=== PATIENT | male | born 1955 | race African-American/Black ===

== ENCOUNTER 2017-12-31 10:02 | Outpatient (CLI) | payer OTHER | END 2017-12-31 10:03 | disposition home or self-care (01) | LOC: BICRAD 10:02 | PROVIDERS: ATTEND Internal Medicine | DX: Z02.71 Encounter for disability determination (principal); M48.07 Spinal stenosis, lumbosacral region; M46.96 Unspecified inflammatory spondylopathy, lumbar region | CPT/HCPCS: 72100 ==

== ENCOUNTER 2018-05-23 10:59 | Outpatient (CLI) | payer OTHER ==
--- NOTE | 2018-05-23 13:21 | RAD ---
FOUR VIEWS LEFT KNEE: HISTORY: Left knee pain. FINDINGS: AP, lateral, and both oblique views left knee are obtained on 05/23/2018. Comparison is made to the p revious exam from 06/03/2015. Four views left knee demonstrate joint space narrowing in the lateral compartment of the left knee. There are some osteophytes still seen in the medial compartment of the left knee. Findings compatibl e with moderate left knee osteoarthritic changes. No acute fractures or bony lesions seen. IMPRESSION: Moderate left knee osteoarthritis. POS: [facility]
--- NOTE | 2018-05-23 13:26 | RAD ---
FOUR VIEWS RIGHT KNEE: COMPARISON: None. HISTORY: Right knee pain. FINDINGS: Four views of the right knee show moderate tricompartmental joint space narrowing and osteophyte form ation consistent with osteoarthritis. No knee effusion is seen. IMPRESSION: Moderate right knee osteoarthritis without acute osseous abnormality. POS: [facility]
== END 2018-05-23 11:00 | disposition home or self-care (01) ==
LOC: RAD-FRANK 10:59
PROVIDERS: ATTEND Nurse Practitioner Family
DX: M25.561 Pain in right knee (principal); M25.562 Pain in left knee; M17.0 Bilateral primary osteoarthritis of knee

== ENCOUNTER 2018-09-25 10:57 | Emergency (ER) | payer OTHER ==
[2018-09-25] MEDS ORDERED: HYDROcodone/Acetaminophen 10/325 mg Tablet ONE (12:33)
[2018-09-25] MEDS ORDERED: Dexamethasone 10 MG/ML VIAL ONE (12:33)
== END 2018-09-25 13:35 | disposition home or self-care (01) ==
LOC: ERS 10:57
DX: M17.0 Bilateral primary osteoarthritis of knee (principal); I10 Essential (primary) hypertension; Z79.899 Other long term (current) drug therapy
CPT/HCPCS: 96372; J1100

== ENCOUNTER 2022-09-26 08:59 | Outpatient (CLI) | payer OTHER | END 2022-09-26 09:00 | disposition home or self-care (01) | LOC: RAD-FRANK 08:59 | PROVIDERS: ATTEND Nurse Practitioner Family | DX: M25.461 Effusion, right knee (principal); M17.11 Unilateral primary osteoarthritis, right knee ==

== ENCOUNTER 2023-07-22 21:12 | Observation (INO) | payer MEDICAID, MEDICARE ==
[2023-07-22 21:50] LABS: #Basophils 0.1 thou/uL (0.0-0.2); #Eosinphils 0.3 thou/uL (0.0-0.7); #Monocytes 0.8 thou/uL (0.11-0.59); #Neutrophils 7.9 thou/uL (1.40-6.50); %Basophils 0.5 % (0.0-1.0); %Eosinophils 2.6 % (0.0-10.0); %Lymphocytes 12.8 % (21.0-51.0); %Neutrophils 75.7 % (42.0-75.0); Hematocrit 44.7 % (42.0-52.0); Mean Corpuscular HGB CONC 33.6 g/dL (32.0-36.0); Mean Corpuscular Hemoglobin 31.9 pg (27.0-31.0); Mean Corpuscular Volume 95.1 fl (78.0-98.0); Mean Platelet Volume 9.6 fL (7.4-10.4); Platelet Count 318 10x3/uL (130-400); RBC Distribution Width 14.8 % (11.5-14.5); White Blood Cell (WBC) Count 10.4 10x3/uL (4.8-10.8)
[2023-07-22 22:06] LABS: ALT (SGPT) 13 U/L (8-55); AST (SGOT) 24 U/L (5-34); Albumin 3.8 g/dL (3.4-4.8); Alkaline Phosphatase 112 U/L (40-110); Anion Gap 15 mmol/L (10-20); BUN (Urea Nitrogen) 11 mg/dL (8.4-25.7); Bilirubin, Total 0.8 mg/dL (0.2-1.2); Calc. Creatinine Clearance 0 mL/min (70-130); Calcium 8.6 mg/dL (7.8-10.44); Carbon Dioxide 19 mmol/L (23-31); Chloride 104 mmol/L (98-107); Estimated GFR 96; Globulin 3.7 g/dL (2.4-3.5); Glucose 135 mg/dL (80-115); Potassium 3.9 mmol/L (3.5-5.1); Protein, Total 7.5 g/dL (5.8-8.1); Sodium 134 mmol/L (136-145)
[2023-07-22 22:10] LABS: Troponin I 0.054 ng/mL (< 0.028)
[2023-07-22] MEDS ORDERED: methylPREDNISolone Sod Succ/PF 125 MG/2 ML VIAL ONE (23:00)
[2023-07-22] MEDS ORDERED: Aspirin Chewable 81 MG TAB ONE (23:00)
[2023-07-23] MEDS ORDERED: Albuterol 2.5 MG (0.5 mL) NEB ONE (00:18)
[2023-07-23] MEDS ORDERED: Ipratropium/Albuterol 3 ML NEB ONE ×2 (00:19→06:08)
[2023-07-23] MEDS ORDERED: Senokot S 8.6-50 MG TAB PO PRN (00:35)
[2023-07-23] MEDS ORDERED: HYDROcodone/Acetaminophen 5/325 mg Tablet PO PRN ×2 (00:35)
[2023-07-23] MEDS ORDERED: Acetaminophen 325 MG TAB PO PRN (00:35)
[2023-07-23] MEDS: Ipratropium/Albuterol 3 ML NEB NEB SCH ×4 (02:18→19:00)
[2023-07-23 02:28] VITALS: BMI 32.6
[2023-07-23 03:37] LABS: #Monocytes 0.2 thou/uL (0.11-0.59); %Basophils 0.3 % (0.0-1.0); %Eosinophils 0.1 % (0.0-10.0); %Lymphocytes 3.3 % (21.0-51.0); %Monocytes 1.5 % (0.0-10.0); %Neutrophils 94.4 % (42.0-75.0); Hematocrit 45.5 % (42.0-52.0); Hemoglobin 14.9 g/dL (14.0-18.0); Mean Corpuscular HGB CONC 32.7 g/dL (32.0-36.0); Mean Corpuscular Hemoglobin 31.2 pg (27.0-31.0); Mean Corpuscular Volume 95.4 fl (78.0-98.0); Mean Platelet Volume 9.8 fL (7.4-10.4); Platelet Count 294 10x3/uL (130-400); RBC Distribution Width 14.8 % (11.5-14.5); Red Blood Cell (RBC) Count 4.77 mill/uL (4.70-6.10); White Blood Cell (WBC) Count 10.6 10x3/uL (4.8-10.8)
[2023-07-23 03:55] LABS: Phosphorus 2.4 mg/dL (2.3-4.7)
[2023-07-23 03:57] LABS: Troponin I 0.035 ng/mL (< 0.028)
[2023-07-23 04:00] LABS: ALT (SGPT) 14 U/L (8-55); AST (SGOT) 23 U/L (5-34); Albumin 3.9 g/dL (3.4-4.8); Alkaline Phosphatase 112 U/L (40-110); Anion Gap 13 mmol/L (10-20); BUN (Urea Nitrogen) 10 mg/dL (8.4-25.7); Bilirubin, Total 1.1 mg/dL (0.2-1.2); Calc. Creatinine Clearance 128 mL/min (70-130); Calcium 8.6 mg/dL (7.8-10.44); Carbon Dioxide 20 mmol/L (23-31); Chloride 104 mmol/L (98-107); Estimated GFR 98; Globulin 3.9 g/dL (2.4-3.5); Glucose 172 mg/dL (80-115); Magnesium 1.8 mg/dL (1.6-2.6); Protein, Total 7.8 g/dL (5.8-8.1); Sodium 133 mmol/L (136-145)
[2023-07-23 05:03] LABS: SARS-CoV-2 NAA Rapid Test Not Detected (NotDetected)
[2023-07-23] MEDS ORDERED: Furosemide 20 MG TAB PO SCH (08:00)
[2023-07-23] MEDS ORDERED: Furosemide 20 MG (2 mL) VIAL SLOW IVP SCH (09:00)
[2023-07-23] MEDS ORDERED: Aspirin 325 mg Enteric Coated Tablet PO SCH (09:00)
[2023-07-23] MEDS ORDERED: Furosemide 40 MG TAB ONE (09:30)
[2023-07-23] MEDS ORDERED: Aspirin 325 MG TAB ONE (09:30)
[2023-07-23] MEDS ORDERED: Famotidine 20 MG TAB ONE (09:31)
[2023-07-23] MEDS ORDERED: Enoxaparin 40 MG (0.4 mL) SYRINGE ONE (09:31)
[2023-07-23] MEDS ORDERED: Lisinopril 10 MG TAB ONE (09:32)
[2023-07-23] MEDS: Enoxaparin 40 MG (0.4 mL) SYRINGE SC SCH (09:43)
[2023-07-23] MEDS: Famotidine 20 MG TAB PO SCH ×2 (09:44→21:29)
[2023-07-23] MEDS: Lisinopril 5 MG TAB PO SCH ×2 (09:44→21:29)
[2023-07-23] MEDS: Nitroglycerin 2% Ointment 1 INCH/1 GM Packet TOP SCH ×2 (14:06→21:29)
[2023-07-23] MEDS: Guaifenesin DM 100-10/5 ML UDCUP PO PRN ×2 (14:06→21:29)
[2023-07-23] MEDS ORDERED: Atorvastatin Calcium 40 MG TAB PO SCH (21:00)
[2023-07-24] MEDS: Ipratropium/Albuterol 3 ML NEB NEB SCH ×2 (01:47→06:27)
[2023-07-24] MEDS: Nitroglycerin 2% Ointment 1 INCH/1 GM Packet TOP SCH (05:41)
[2023-07-24] MEDS: Famotidine 20 MG TAB PO SCH (08:19)
[2023-07-24] MEDS: Enoxaparin 40 MG (0.4 mL) SYRINGE SC SCH (08:19)
[2023-07-24] MEDS: Lisinopril 5 MG TAB PO SCH (08:20)
[2023-07-24] MEDS ORDERED: Aspirin 81 mg Enteric Coated Tablet PO SCH (09:00)
[2023-07-24] MEDS ORDERED: FLU VACC QS2023(65UP)/MF59C/PF 60 MCG/0.5 ML SYRINGE IM ONE (09:00)
[2023-07-24] MEDS: Guaifenesin DM 100-10/5 ML UDCUP PO PRN (11:53)
[2023-07-24 11:56] VITALS: BP 148/92; TEMP 98
== END 2023-07-24 13:00 | disposition home or self-care (01) ==
LOC: ERS 21:12 → ERHOLD 07-23 00:32 → 2SW 07-23 12:56
PROVIDERS: ADMIT Student in an Organized Health Care Education/Training Program; ATTEND Physician Assistant
DX: R06.02 Shortness of breath (principal); I10 Essential (primary) hypertension; M17.10 Unilateral primary osteoarthritis, unspecified knee; R79.89 Other specified abnormal findings of blood chemistry; I11.0 Hypertensive heart disease with heart failure; I50.9 Heart failure, unspecified; Z79.82 Long term (current) use of aspirin; Z79.899 Other long term (current) drug therapy
CPT/HCPCS: 0240U; 71045; 80053 ×2; 83605; 83735; 83880; 84100; 84484 ×3; 85025 ×2; 87040; 90694; 93306; 94640 ×4; 96361; 96372 ×2; 96374; 99285; G0008; G0378 ×3; 36415; 90471; J1650; J2930; J7611; J7620

== ENCOUNTER 2023-10-06 09:50 | Inpatient (IN) | payer MEDICARE, MEDICAID ==
[2023-10-06] MEDS ORDERED: Furosemide 40 MG (4 mL) VIAL ONE (10:35)
[2023-10-06] MEDS ORDERED: Ipratropium/Albuterol 3 ML NEB ONE (10:35)
[2023-10-06 11:35] LABS: #Basophils 0.1 thou/uL (0.0-0.2); #Eosinphils 0.6 thou/uL (0.0-0.7); #Monocytes 0.7 thou/uL (0.11-0.59); #Neutrophils 4.6 thou/uL (1.40-6.50); %Basophils 0.7 % (0.0-1.0); %Eosinophils 8.4 % (0.0-10.0); %Lymphocytes 17.4 % (21.0-51.0); %Monocytes 9.9 % (0.0-10.0); %Neutrophils 63.2 % (42.0-75.0); Hematocrit 40.9 % (42.0-52.0); Hemoglobin 13.6 g/dL (14.0-18.0); Mean Corpuscular HGB CONC 33.3 g/dL (32.0-36.0); Mean Corpuscular Hemoglobin 30.8 pg (27.0-31.0); Mean Corpuscular Volume 92.7 fl (78.0-98.0); Mean Platelet Volume 11.6 fL (7.4-10.4); Platelet Count 197 10x3/uL (130-400); RBC Distribution Width 14.8 % (11.5-14.5); Red Blood Cell (RBC) Count 4.41 mill/uL (4.70-6.10); White Blood Cell (WBC) Count 7.3 10x3/uL (4.8-10.8)
[2023-10-06 11:45] LABS: ALT (SGPT) 14 U/L (8-55); AST (SGOT) 32 U/L (5-34); Albumin 3.2 g/dL (3.4-4.8); Alkaline Phosphatase 139 U/L (40-110); Anion Gap 13 mmol/L (10-20); BUN (Urea Nitrogen) 10 mg/dL (8.4-25.7); Bilirubin, Total 1.5 mg/dL (0.2-1.2); Calc. Creatinine Clearance 0 mL/min (70-130); Carbon Dioxide 24 mmol/L (23-31); Chloride 103 mmol/L (98-107); Estimated GFR 96; Globulin 4.2 g/dL (2.4-3.5); Glucose 146 mg/dL (80-115); Potassium 3.7 mmol/L (3.5-5.1); Protein, Total 7.4 g/dL (5.8-8.1); Sodium 136 mmol/L (136-145)
[2023-10-06] MEDS ORDERED: Sodium Chloride 0.9% 100 ML ONE (11:46)
[2023-10-06] MEDS ORDERED: cefTRIAXone (ROCEPHIN) 1 GM VIAL ONE (11:46)
[2023-10-06 11:47] LABS: Troponin I 0.046 ng/mL (< 0.028)
[2023-10-06 12:39] LABS: Bacteria/HPF None Seen HPF (None Seen); Bilirubin Negative (Negative); Blood, Urine Negative (Negative); CAUTI Indications for Culture Alt mental st,lethar; Clarity Clear (Clear); Glucose, Urine (Dipstick) Normal (Negative); Ketone, Urine Negative (Negative); Leukocyte Negative Leu/uL (Negative); Nitrite Negative (Negative); Protein, Urine (Dipstick) Negative (Neg-Trace); RBC/HPF 0-3 HPF (0-3); Squamous Epithelial 0-3 HPF (0-3); WBC/HPF 0-3 HPF (0-3); pH, Urine 6.5 (5.0-9.0)
[2023-10-06 12:41] LABS: Urine Culture Reflex No No
[2023-10-06 13:13] LABS: Actual Bicarbonate (HCO3v) 28.5 mEq/L (22-28); Analyzer IN Cardio ER; Base Excess 2.4 mEq/L (-2.0 to +3.0); Calcium, Ionized (venous) 1.14 mmol/L (1.16-1.32); Chloride (VBG) 100 mmol/L (98-106); Hematocrit-VBG 44 % (42.0-52.0); Hemoglobin (Hb) 14.8 g/dL (12.6-17.4); Potassium (VBG) 3.78 mmol/L (3.70-5.30); Sodium 140 mmol/L (133-146); pH (venous) 7.375 (7.32-7.43)
[2023-10-06] MEDS ORDERED: Azithromycin 500 MG VIAL ONE (13:14)
[2023-10-06] MEDS ORDERED: Acetaminophen 325 MG TAB PO PRN (14:09)
[2023-10-06] MEDS ORDERED: Acetaminophen/Codeine 30-300mg Tablet PO PRN (14:31)
[2023-10-06] MEDS: Lisinopril 5 MG TAB PO SCH ×2 (15:20→20:25)
[2023-10-06] MEDS: Nicotine 14 MG PATCH TD SCH (17:00)
[2023-10-06] MEDS: Enoxaparin 40 MG (0.4 mL) SYRINGE SC SCH (17:00)
[2023-10-06] MEDS: Empagliflozin 10 MG TAB PO SCH (17:01)
[2023-10-06] MEDS: Spironolactone 25 MG TAB PO SCH (17:01)
[2023-10-06] MEDS: Potassium Chloride 20 MEQ TAB PO SCH (17:01)
[2023-10-06 17:43] LABS: Lactic Acid 3.8 mmol/L (0.5-2.2)
[2023-10-06 17:48] LABS: Magnesium 1.7 mg/dL (1.6-2.6)
[2023-10-06 17:53] LABS: Troponin I 0.052 ng/mL (< 0.028)
[2023-10-06 19:05] LABS: Amphetamine Not Detected (NotDetected); Barbiturates Screen Not Detected (NotDetected); Benzodiazepine Screen Not Detected (NotDetected); Cocaine Metabolite Screen Detected (NotDetected); Methadone Not Detected (NotDetected); Methamphetamine Not Detected (NotDetected); Opiate Screen Not Detected (NotDetected); Oxycodone Screen Not Detected (NotDetected); Phencyclidine (PCP) Not Detected (NotDetected); THC/Cannabinoid Screen Not Detected (NotDetected); Tricyclic Screen Not Detected (NotDetected)
[2023-10-06 19:20] LABS: Troponin I 0.035 ng/mL (< 0.028)
[2023-10-06] MEDS: Ipratropium/Albuterol 3 ML NEB NEB PRN (21:03)
[2023-10-07 05:20] LABS: #Basophils 0.1 thou/uL (0.0-0.2); #Eosinphils 0.7 thou/uL (0.0-0.7); #Monocytes 0.8 thou/uL (0.11-0.59); #Neutrophils 4.2 thou/uL (1.40-6.50); %Basophils 0.9 % (0.0-1.0); %Eosinophils 9.8 % (0.0-10.0); %Lymphocytes 22.4 % (21.0-51.0); %Monocytes 10.7 % (0.0-10.0); %Neutrophils 55.9 % (42.0-75.0); Hematocrit 41.8 % (42.0-52.0); Hemoglobin 13.7 g/dL (14.0-18.0); Mean Corpuscular HGB CONC 32.8 g/dL (32.0-36.0); Mean Corpuscular Hemoglobin 31.3 pg (27.0-31.0); Mean Corpuscular Volume 95.4 fl (78.0-98.0); Mean Platelet Volume 10.8 fL (7.4-10.4); Platelet Count 225 10x3/uL (130-400); RBC Distribution Width 14.9 % (11.5-14.5); Red Blood Cell (RBC) Count 4.38 mill/uL (4.70-6.10); White Blood Cell (WBC) Count 7.5 10x3/uL (4.8-10.8)
[2023-10-07] MEDS: Furosemide 40 MG (4 mL) VIAL SLOW IVP SCH (05:29)
[2023-10-07 05:47] LABS: Anion Gap 15 mmol/L (10-20); BUN (Urea Nitrogen) 10 mg/dL (8.4-25.7); Calc. Creatinine Clearance 124 mL/min (70-130); Calcium 9.3 mg/dL (7.8-10.44); Carbon Dioxide 23 mmol/L (23-31); Cardiac Risk 3.2 (Less than 4.5); Chloride 104 mmol/L (98-107); Cholesterol 118 mg/dl (< 200 Desired); Estimated GFR 95; Glucose 101 mg/dL (80-115); HDL Cholesterol 37 mg/dL (>60 Neg Risk); LDL Cholesterol, Calculated 70 mg/dL; Potassium 3.7 mmol/L (3.5-5.1); Sodium 138 mmol/L (136-145); Triglycerides 57 mg/dL (Less than 150)
[2023-10-07] MEDS: Empagliflozin 10 MG TAB PO SCH (08:57)
[2023-10-07] MEDS: Spironolactone 25 MG TAB PO SCH (08:59)
[2023-10-07 10:08] LABS: Lactic Acid 1.8 mmol/L (0.5-2.2)
[2023-10-07] MEDS: cefTRIAXone\\ROCEPHIN 1 GM in Sodium Chloride 0.9% 100 ML IVPB SCH (11:52)
[2023-10-07] MEDS: Azithromycin 500 MG in Sodium Chloride 0.9% 250 ML 250 ML IVPB SCH (12:43)
[2023-10-07] MEDS: Magnesium 2 GM/50 ML(in water) 2 GM in Premix 1 BAG IVPB SCH (12:44)
[2023-10-08 06:21] LABS: #Eosinphils 0.5 thou/uL (0.0-0.7); #Monocytes 0.8 thou/uL (0.11-0.59); #Neutrophils 4.2 thou/uL (1.40-6.50); %Basophils 0.6 % (0.0-1.0); %Eosinophils 7.1 % (0.0-10.0); %Lymphocytes 22.1 % (21.0-51.0); %Monocytes 10.8 % (0.0-10.0); %Neutrophils 59.3 % (42.0-75.0); Hemoglobin 14.6 g/dL (14.0-18.0); Mean Corpuscular HGB CONC 32.4 g/dL (32.0-36.0); Mean Corpuscular Hemoglobin 30.9 pg (27.0-31.0); Mean Corpuscular Volume 95.3 fl (78.0-98.0); Platelet Count 214 10x3/uL (130-400); RBC Distribution Width 14.7 % (11.5-14.5); Red Blood Cell (RBC) Count 4.72 mill/uL (4.70-6.10)
[2023-10-08 06:57] LABS: Anion Gap 16 mmol/L (10-20); BUN (Urea Nitrogen) 14 mg/dL (8.4-25.7); Calc. Creatinine Clearance 112 mL/min (70-130); Calcium 9.3 mg/dL (7.8-10.44); Carbon Dioxide 23 mmol/L (23-31); Chloride 103 mmol/L (98-107); Estimated GFR 86; Glucose 93 mg/dL (80-115); Potassium 3.7 mmol/L (3.5-5.1); Sodium 138 mmol/L (136-145)
[2023-10-08] MEDS: Potassium Chloride 20 MEQ TAB PO SCH (15:55)
[2023-10-08 23:36] LABS: Magnesium 1.9 mg/dL (1.6-2.6)
[2023-10-09 04:28] LABS: #Basophils 0.1 thou/uL (0.0-0.2); #Eosinphils 0.5 thou/uL (0.0-0.7); #Monocytes 0.8 thou/uL (0.11-0.59); #Neutrophils 4.8 thou/uL (1.40-6.50); %Basophils 0.6 % (0.0-1.0); %Eosinophils 6.1 % (0.0-10.0); %Lymphocytes 21.4 % (21.0-51.0); %Monocytes 10.5 % (0.0-10.0); %Neutrophils 61.1 % (42.0-75.0); Hematocrit 42.5 % (42.0-52.0); Hemoglobin 13.6 g/dL (14.0-18.0); Mean Corpuscular Hemoglobin 30.3 pg (27.0-31.0); Mean Corpuscular Volume 94.7 fl (78.0-98.0); Mean Platelet Volume 10.6 fL (7.4-10.4); Platelet Count 237 10x3/uL (130-400); RBC Distribution Width 14.8 % (11.5-14.5); Red Blood Cell (RBC) Count 4.49 mill/uL (4.70-6.10); White Blood Cell (WBC) Count 7.9 10x3/uL (4.8-10.8)
[2023-10-09 05:04] LABS: Anion Gap 15 mmol/L (10-20); BUN (Urea Nitrogen) 16 mg/dL (8.4-25.7); Calc. Creatinine Clearance 105 mL/min (70-130); Calcium 8.9 mg/dL (7.8-10.44); Carbon Dioxide 23 mmol/L (23-31); Chloride 104 mmol/L (98-107); Estimated GFR 79; Glucose 108 mg/dL (80-115); Potassium 3.7 mmol/L (3.5-5.1); Sodium 138 mmol/L (136-145)
[2023-10-09] MEDS: Spironolactone 25 MG TAB PO SCH (08:08)
[2023-10-09] MEDS: Potassium Chloride 20 MEQ TAB PO SCH (08:25)
[2023-10-10 05:40] LABS: Anion Gap 16 mmol/L (10-20); BUN (Urea Nitrogen) 15 mg/dL (8.4-25.7); Calc. Creatinine Clearance 95 mL/min (70-130); Calcium 9.2 mg/dL (7.8-10.44); Carbon Dioxide 23 mmol/L (23-31); Chloride 103 mmol/L (98-107); Estimated GFR 78; Glucose 105 mg/dL (80-115); Magnesium 2.2 mg/dL (1.6-2.6); Potassium 4.4 mmol/L (3.5-5.1); Sodium 138 mmol/L (136-145)
[2023-10-10] MEDS ORDERED: Communication Order-Pharmacy FS SCH (09:15)
[2023-10-10] MEDS: Aspirin 325 mg Enteric Coated Tablet PO SCH (10:29)
[2023-10-11] MEDS: Sodium Chloride 0.9% 1,000 ML IV SCH (05:56)
[2023-10-11] MEDS: Aspirin 81 mg Enteric Coated Tablet PO SCH (05:59)
[2023-10-11] MEDS ORDERED: Heparin 10,000 UNITS/ 10 ML VIAL ONE (06:28)
[2023-10-11] MEDS ORDERED: Lidocaine 1% (PF) 30 ML VIAL ONE (06:28)
[2023-10-11] MEDS ORDERED: fentaNYL 50 mcg/mL 1 mL Vial ONE (07:28)
[2023-10-11] MEDS ORDERED: Nitroglycerin 0.4 MG TAB (25 Tab Bottle) SL PRN (08:00)
[2023-10-11] MEDS ORDERED: Sodium Chloride 0.9% 200 ML IV PRN (08:00)
[2023-10-11] MEDS ORDERED: Acetaminophen/Codeine 30-300mg Tablet PO PRN (08:00)
[2023-10-11 09:50] LABS: Anion Gap 14 mmol/L (10-20); BUN (Urea Nitrogen) 18 mg/dL (8.4-25.7); Calc. Creatinine Clearance 88 mL/min (70-130); Calcium 9.8 mg/dL (7.8-10.44); Carbon Dioxide 25 mmol/L (23-31); Chloride 102 mmol/L (98-107); Estimated GFR 77; Glucose 97 mg/dL (80-115); Potassium 4.2 mmol/L (3.5-5.1); Sodium 137 mmol/L (136-145)
[2023-10-12 08:19] VITALS: BP 130/71; TEMP 98.8
[2023-10-12 08:22] VITALS: BMI 30.6
[2023-10-12] MEDS ORDERED: Furosemide 20 MG TAB PO SCH (14:00)
[2023-10-12] MEDS ORDERED: Carvedilol 3.125 MG TAB PO SCH (17:00)
[2023-10-12] MEDS ORDERED: Atorvastatin Calcium 20 MG TAB PO SCH (21:00)
[2023-10-12] MEDS ORDERED: Lisinopril 10 MG TAB PO SCH (21:00)
== END 2023-10-12 10:30 | disposition home or self-care (01) | DRG 286 ==
LOC: ERS 09:50 → 2NO 15:10
PROVIDERS: ADMIT Family Medicine; ATTEND Internal Medicine
PROC: 4A023N7 Measurement of Cardiac Sampling and Pressure, Left Heart, Percutaneous Approach (ICD-10-PCS; principal; 2023-10-11)
PROC: B2111ZZ Fluoroscopy of Multiple Coronary Arteries using Low Osmolar Contrast (ICD-10-PCS; 2023-10-11)
PROC: B2151ZZ Fluoroscopy of Left Heart using Low Osmolar Contrast (ICD-10-PCS; 2023-10-11)
DX: I11.0 Hypertensive heart disease with heart failure (principal); I50.23 Acute on chronic systolic (congestive) heart failure; M06.9 Rheumatoid arthritis, unspecified; F17.210 Nicotine dependence, cigarettes, uncomplicated; R79.89 Other specified abnormal findings of blood chemistry; G47.33 Obstructive sleep apnea (adult) (pediatric); F14.10 Cocaine abuse, uncomplicated; E83.42 Hypomagnesemia; E66.9 Obesity, unspecified; Z71.51 Drug abuse counseling and surveillance of drug abuser; Z91.199 Patient's noncompliance with other medical treatment and regimen due to unspecified reason; Z79.899 Other long term (current) drug therapy; Z71.6 Tobacco abuse counseling; Z68.30 Body mass index [BMI] 30.0-30.9, adult
CPT/HCPCS: 36415; 71045; 80048; 80053; 80061; 80306; 81001; 82805; 83605; 83735; 83880; 84443; 84484; 85025; 87040; 93005; 93458; 93798; 94640; 96365; 96367; 96375; C1769; J0456; J0696; J1644; J1650; J1940; J2001; J3010; J3475; J3490; J7050; J7620

== ENCOUNTER 2024-01-02 13:50 | Inpatient (IN) | payer MEDICARE, MEDICAID ==
[2024-01-02 14:10] LABS: #Basophils 0.05 10x3/uL (0.0-0.2); %Basophils 0.7 % (0.0-1.0); %Eosinophils 2.3 % (0.0-10.0); %Lymphocytes 18.1 % (21.0-51.0); %Monocytes 9.5 % (0.0-10.0); %Neutrophils 68.8 % (42.0-75.0); Hematocrit 38.6 % (42.0-52.0); Hemoglobin 12.9 g/dL (14.0-18.0); Mean Corpuscular HGB CONC 33.4 g/dL (32.0-36.0); Mean Corpuscular Hemoglobin 30.1 pg (27.0-31.0); Mean Corpuscular Volume 90.2 fL (78.0-98.0); Mean Platelet Volume 10.3 fL (7.4-10.4); Platelet Count 301 10x3/uL (130-400); RBC Distribution Width 15.9 % (11.5-14.5); Red Blood Cell (RBC) Count 4.28 mill/uL (4.70-6.10)
[2024-01-02 14:27] LABS: ALT (SGPT) 9 U/L (8-55); AST (SGOT) 24 U/L (5-34); Albumin 2.6 g/dL (3.4-4.8); Alkaline Phosphatase 138 U/L (40-110); Anion Gap 14 mmol/L (10-20); BUN (Urea Nitrogen) 12 mg/dL (8.4-25.7); Bilirubin, Total 1.4 mg/dL (0.2-1.2); Calc. Creatinine Clearance 0 mL/min (70-130); Calcium 8.8 mg/dL (7.8-10.44); Carbon Dioxide 19 mmol/L (23-31); Chloride 102 mmol/L (98-107); Estimated GFR 96; Globulin 4.6 g/dL (2.4-3.5); Glucose 101 mg/dL (80-115); Potassium 3.4 mmol/L (3.5-5.1); Protein, Total 7.2 g/dL (5.8-8.1); Sodium 132 mmol/L (136-145)
[2024-01-02 14:31] LABS: Troponin I 0.036 ng/mL (< 0.028)
[2024-01-02] MEDS ORDERED: Furosemide 40 MG (4 mL) VIAL ONE (16:22)
[2024-01-02] MEDS ORDERED: Acetaminophen 650 MG Suppository PR PRN (17:11)
[2024-01-02 17:39] LABS: Magnesium 1.7 mg/dL (1.6-2.6)
[2024-01-02] MEDS ORDERED: Magnesium Sulfate 2 GM in Sodium Chloride 0.9% 250 ML 250 ML IVPB SCH (18:15)
[2024-01-02] MEDS ORDERED: Magnesium 2 GM/50 ML BAG (IN WATER) ONE (18:17)
[2024-01-02] MEDS: Magnesium 2 GM/50 ML(in water) 2 GM in Premix 1 BAG IVPB SCH (18:23)
[2024-01-02 18:26] VITALS: BMI 33.0
[2024-01-02 18:44] LABS: Magnesium 1.8 mg/dL (1.6-2.6)
[2024-01-02 18:45] LABS: Troponin I 0.039 ng/mL (< 0.028)
[2024-01-02 21:54] LABS: Troponin I 0.039 ng/mL (< 0.028)
[2024-01-02] MEDS ORDERED: Famotidine 20 MG TAB ONE (22:43)
[2024-01-02] MEDS: Famotidine 20 MG TAB PO SCH (22:45)
[2024-01-03] MEDS ORDERED: Furosemide 40 MG (4 mL) VIAL ONE (05:48)
[2024-01-03] MEDS: Furosemide 40 MG (4 mL) VIAL SLOW IVP SCH (06:35)
[2024-01-03] MEDS ORDERED: Famotidine 20 MG TAB ONE (09:43)
[2024-01-03] MEDS ORDERED: Enoxaparin 40 MG (0.4 mL) SYRINGE ONE (09:43)
[2024-01-03] MEDS: Enoxaparin 40 MG (0.4 mL) SYRINGE SC SCH (09:58)
[2024-01-03 10:01] LABS: #Basophils 0.05 10x3/uL (0.0-0.2); %Basophils 0.8 % (0.0-1.0); %Eosinophils 2.7 % (0.0-10.0); %Lymphocytes 19.7 % (21.0-51.0); %Monocytes 11.2 % (0.0-10.0); %Neutrophils 65.1 % (42.0-75.0); Hematocrit 42.7 % (42.0-52.0); Hemoglobin 14.1 g/dL (14.0-18.0); Mean Corpuscular Hemoglobin 29.9 pg (27.0-31.0); Mean Corpuscular Volume 90.7 fL (78.0-98.0); Mean Platelet Volume 10.4 fL (7.4-10.4); Platelet Count 340 10x3/uL (130-400); RBC Distribution Width 15.9 % (11.5-14.5); Red Blood Cell (RBC) Count 4.71 mill/uL (4.70-6.10)
[2024-01-03 11:01] LABS: Anion Gap 11 mmol/L (10-20); BUN (Urea Nitrogen) 12 mg/dL (8.4-25.7); Calc. Creatinine Clearance 102 mL/min (70-130); Calcium 9.4 mg/dL (7.8-10.44); Carbon Dioxide 28 mmol/L (23-31); Chloride 101 mmol/L (98-107); Estimated GFR 87; Glucose 105 mg/dL (80-115); Magnesium 1.9 mg/dL (1.6-2.6); Potassium 3.6 mmol/L (3.5-5.1); Sodium 136 mmol/L (136-145)
[2024-01-03] MEDS ORDERED: Albuterol 200 PUFF (6.7GM INHALER) INH PRN (16:25)
[2024-01-03] MEDS: Potassium Chloride 20 MEQ TAB PO SCH (16:43)
[2024-01-03] MEDS: Empagliflozin 10 MG TAB PO SCH (16:44)
[2024-01-03] MEDS: Carvedilol 3.125 MG TAB PO SCH (16:44)
[2024-01-03] MEDS ORDERED: Potassium Chloride 20 MEQ TAB PO SCH (17:00)
[2024-01-03 19:20] LABS: Amphetamine Not Detected (NotDetected); Barbiturates Screen Not Detected (NotDetected); Benzodiazepine Screen Not Detected (NotDetected); Cocaine Metabolite Screen Detected (NotDetected); Methadone Not Detected (NotDetected); Methamphetamine Detected (NotDetected); Opiate Screen Not Detected (NotDetected); Oxycodone Screen Not Detected (NotDetected); Phencyclidine (PCP) Not Detected (NotDetected); THC/Cannabinoid Screen Not Detected (NotDetected); Tricyclic Screen Not Detected (NotDetected)
[2024-01-03] MEDS: Lisinopril 5 MG TAB PO SCH (21:33)
[2024-01-03] MEDS: Atorvastatin Calcium 20 MG TAB PO SCH (21:34)
[2024-01-03] MEDS: Acetaminophen 325 MG TAB PO PRN (21:34)
[2024-01-04 05:16] LABS: Anion Gap 13 mmol/L (10-20); BUN (Urea Nitrogen) 17 mg/dL (8.4-25.7); Calc. Creatinine Clearance 97 mL/min (70-130); Carbon Dioxide 24 mmol/L (23-31); Chloride 102 mmol/L (98-107); Estimated GFR 82; Glucose 129 mg/dL (80-115); Magnesium 1.9 mg/dL (1.6-2.6); Potassium 3.5 mmol/L (3.5-5.1); Sodium 135 mmol/L (136-145)
[2024-01-04] MEDS: Spironolactone 25 MG TAB PO SCH (09:29)
[2024-01-04] MEDS: Potassium Chloride 20 MEQ TAB PO SCH ×2 (09:29→15:56)
[2024-01-04] MEDS: Empagliflozin 10 MG TAB PO SCH (09:30)
[2024-01-04] MEDS: Furosemide 20 MG TAB PO SCH (09:50)
[2024-01-04 11:43] VITALS: TEMP 97.5
[2024-01-04 15:49] VITALS: BP 116/71
[2024-01-04] MEDS ORDERED: Lisinopril 10 MG TAB PO SCH (21:00)
[2024-01-04] MEDS ORDERED: Lisinopril 5 MG TAB PO SCH (21:00)
[2024-01-05] MEDS ORDERED: Potassium Chloride 20 MEQ TAB PO SCH (08:00)
== END 2024-01-04 18:00 | disposition home or self-care (01) | DRG 291 ==
LOC: ERS 13:50 → ERHOLD 17:38 → 2NO 17:40
PROVIDERS: ADMIT Internal Medicine; ATTEND Internal Medicine
DX: I11.0 Hypertensive heart disease with heart failure (principal); I50.23 Acute on chronic systolic (congestive) heart failure; E87.6 Hypokalemia; M06.9 Rheumatoid arthritis, unspecified; Z79.899 Other long term (current) drug therapy; F14.10 Cocaine abuse, uncomplicated; Z91.148 Patient's other noncompliance with medication regimen for other reason
CPT/HCPCS: 36415; 71046; 80048; 80053; 80306; 83735; 83880; 84443; 84484; 85025; 93005; 97139; J1650; J1940; J3475

== ENCOUNTER 2025-07-04 14:29 | Inpatient (IN) | payer MEDICARE, MEDICAID ==
[2025-07-04 16:01] LABS: Actual Bicarbonate (HCO3v) 27.3 mEq/L (22-28); Analyzer IN Cardio ER; Base Excess 3.2 mEq/L (-2.0 to +3.0); Calcium, Ionized (venous) 1.02 mmol/L (1.16-1.32); Chloride (VBG) 102 mmol/L (98-106); Hematocrit-VBG 45 % (42.0-52.0); Hemoglobin (Hb) 15.4 g/dL (12.6-17.4); Potassium (VBG) 3.81 mmol/L (3.70-5.30); Sodium 139 mmol/L (133-146)
[2025-07-04 16:08] LABS: #Basophils 0.05 10x3/uL (0.0-0.2); #Eosinophils 0.11 10x3/uL (0.0-0.7); #Monocytes 0.67 10x3/uL (0.11-0.59); #Neutrophils 4.70 10x3/uL (1.40-6.50); %Basophils 0.7 % (0.0-1.0); %Eosinophils 1.5 % (0.0-10.0); %Lymphocytes 22.2 % (21.0-51.0); %Monocytes 9.4 % (0.0-10.0); %Neutrophils 65.8 % (42.0-75.0); Hematocrit 43.4 % (42.0-52.0); Hemoglobin 14.3 g/dL (14.0-18.0); Mean Corpuscular Hemoglobin 31.6 pg (27.0-31.0); Mean Corpuscular Volume 95.8 fL (78.0-98.0); Platelet Count 295 10x3/uL (130-400); Red Blood Cell (RBC) Count 4.53 mill/uL (4.70-6.10); White Blood Cell (WBC) Count 7.15 10x3/uL (4.8-10.8)
[2025-07-04 16:31] LABS: ALT (SGPT) 14 U/L (Less than 45); AST (SGOT) 32 U/L (11-34); Albumin 3.2 g/dL (3.1-4.5); Alkaline Phosphatase 88 U/L (40-110); Anion Gap 18 mmol/L (10-20); BUN (Urea Nitrogen) 10 mg/dL (8.4-25.7); Bilirubin, Total 0.9 mg/dL (0.3-1.2); Calc. Creatinine Clearance 0 mL/min (70-130); Calcium 8.6 mg/dL (7.8-10.44); Carbon Dioxide 24 mmol/L (23-31); Chloride 102 mmol/L (98-107); Globulin 4.0 g/dL (2.4-3.5); Glucose 92 mg/dL (80-115); Potassium 4.6 mmol/L (3.5-5.1); Sodium 139 mmol/L (136-145)
[2025-07-04] MEDS ORDERED: Furosemide 40 MG (4 mL) VIAL ONE (16:47)
[2025-07-04] MEDS ORDERED: Melatonin 3 MG TAB PO PRN (18:08)
[2025-07-04] MEDS ORDERED: Ondansetron PF 4 MG/2 ML Vial IVP PRN (18:08)
[2025-07-04] MEDS ORDERED: Albuterol 2.5 MG (3 mL) NEB NEB PRN (18:08)
[2025-07-04 19:32] VITALS: BMI 32.6
[2025-07-04] MEDS: Heparin 5,000 UNITS/ML VIAL SC SCH (20:20)
[2025-07-04] MEDS: Carvedilol 3.125 MG TAB PO SCH (20:20)
[2025-07-04] MEDS ORDERED: Lisinopril 10 MG TAB PO SCH (21:00)
[2025-07-05] MEDS: Furosemide 40 MG (4 mL) VIAL SLOW IVP SCH ×2 (05:24→14:31)
[2025-07-05 06:46] LABS: #Basophils Less than 0.03 10x3/uL (0.0-0.2); #Eosinophils Less than 0.03 10x3/uL (0.0-0.7); #Monocytes 0.10 10x3/uL (0.11-0.59); #Neutrophils 4.99 10x3/uL (1.40-6.50); %Basophils 0.2 % (0.0-1.0); %Eosinophils 0.0 % (0.0-10.0); %Lymphocytes 10.6 % (21.0-51.0); %Monocytes 1.7 % (0.0-10.0); %Neutrophils 87.2 % (42.0-75.0); Hematocrit 43.0 % (42.0-52.0); Hemoglobin 14.5 g/dL (14.0-18.0); Mean Corpuscular Hemoglobin 31.7 pg (27.0-31.0); Mean Corpuscular Volume 93.9 fL (78.0-98.0); Platelet Count 325 10x3/uL (130-400); Red Blood Cell (RBC) Count 4.58 mill/uL (4.70-6.10); White Blood Cell (WBC) Count 5.73 10x3/uL (4.8-10.8)
[2025-07-05 07:04] LABS: Anion Gap 16 mmol/L (10-20); BUN (Urea Nitrogen) 13 mg/dL (8.4-25.7); Calc. Creatinine Clearance 105 mL/min (70-130); Calcium 8.6 mg/dL (7.8-10.44); Carbon Dioxide 23 mmol/L (23-31); Chloride 103 mmol/L (98-107); Glucose 172 mg/dL (80-115); Potassium 3.4 mmol/L (3.5-5.1); Sodium 139 mmol/L (136-145)
[2025-07-05 07:39] LABS: Cocaine Metabolite Screen PRELIM POSITIVE (Negative); THC/Cannabinoid Screen Negative (Negative); Tricyclic Screen Negative (Negative)
[2025-07-05] MEDS: FLU (Fluad Triv) 25-26 (65UP)PF 45 MCG/0.5 ML Syringe IM ONE (07:41)
[2025-07-05 08:24] LABS: Magnesium 1.7 mg/dL (1.6-2.6)
[2025-07-05] MEDS ORDERED: predniSONE 20 MG TAB PO SCH (09:00)
[2025-07-05] MEDS: Aspirin 81 mg Enteric Coated Tablet PO SCH (09:36)
[2025-07-05] MEDS: Spironolactone 25 MG TAB PO SCH (09:37)
[2025-07-05] MEDS: Magnesium Sulfate In Water 4 GM in Premix 1 BAG IVPB SCH (13:56)
[2025-07-05] MEDS ORDERED: Preparation H Ointment 57 gram tube TOP PRN (17:11)
[2025-07-06 06:06] LABS: Anion Gap 14 mmol/L (10-20); BUN (Urea Nitrogen) 21 mg/dL (8.4-25.7); Calc. Creatinine Clearance 93 mL/min (70-130); Calcium 8.7 mg/dL (7.8-10.44); Carbon Dioxide 26 mmol/L (23-31); Chloride 104 mmol/L (98-107); Glucose 106 mg/dL (80-115); Magnesium 2.4 mg/dL (1.6-2.6); Potassium 3.2 mmol/L (3.5-5.1); Sodium 141 mmol/L (136-145)
[2025-07-06] MEDS ORDERED: Spironolactone 25 MG TAB PO SCH (10:15)
[2025-07-06] MEDS: Lisinopril 5 MG TAB PO SCH (10:26)
[2025-07-06] MEDS: Spironolactone 25 MG TAB PO SCH (10:27)
[2025-07-06] MEDS: Acetaminophen 325 MG TAB PO PRN (16:20)
[2025-07-06] MEDS: Preparation H Ointment 28 GM TUBE TOP PRN (18:13)
[2025-07-07 04:57] LABS: Anion Gap 14 mmol/L (10-20); BUN (Urea Nitrogen) 18 mg/dL (8.4-25.7); Calc. Creatinine Clearance 91 mL/min (70-130); Calcium 9.1 mg/dL (7.8-10.44); Carbon Dioxide 26 mmol/L (23-31); Chloride 102 mmol/L (98-107); Glucose 112 mg/dL (80-115); Magnesium 2.1 mg/dL (1.6-2.6); Potassium 3.6 mmol/L (3.5-5.1); Sodium 138 mmol/L (136-145)
[2025-07-07] MEDS: Lisinopril 5 MG TAB PO SCH (09:57)
[2025-07-07] MEDS: Spironolactone 25 MG TAB PO SCH (09:57)
[2025-07-08 05:29] LABS: Anion Gap 11 mmol/L (10-20); BUN (Urea Nitrogen) 16 mg/dL (8.4-25.7); Calc. Creatinine Clearance 94 mL/min (70-130); Calcium 8.9 mg/dL (7.8-10.44); Carbon Dioxide 27 mmol/L (23-31); Chloride 103 mmol/L (98-107); Glucose 128 mg/dL (80-115); Magnesium 2.1 mg/dL (1.6-2.6); Potassium 3.4 mmol/L (3.5-5.1); Sodium 138 mmol/L (136-145)
[2025-07-08] MEDS: Lisinopril 10 MG TAB PO SCH (09:09)
[2025-07-09 04:56] LABS: Anion Gap 11 mmol/L (10-20); BUN (Urea Nitrogen) 20 mg/dL (8.4-25.7); Calc. Creatinine Clearance 88 mL/min (70-130); Calcium 9.2 mg/dL (7.8-10.44); Carbon Dioxide 28 mmol/L (23-31); Chloride 105 mmol/L (98-107); Glucose 98 mg/dL (80-115); Potassium 3.8 mmol/L (3.5-5.1); Sodium 140 mmol/L (136-145)
[2025-07-09] MEDS: Furosemide 40 MG TAB PO SCH (05:57)
[2025-07-09] MEDS: Spironolactone 25 MG TAB PO SCH (08:10)
[2025-07-09 12:00] VITALS: BP 119/75; TEMP 97.7
== END 2025-07-09 13:25 | disposition home or self-care (01) | DRG 280 ==
LOC: ERS 14:29 → 2NO 17:49
PROVIDERS: ADMIT Family Medicine; ATTEND Internal Medicine
PROC: 5A09357 Assistance with Respiratory Ventilation, Less than 24 Consecutive Hours, Continuous Positive Airway Pressure (ICD-10-PCS; principal; 2025-07-05)
PROC: 3E02340 Introduction of Influenza Vaccine into Muscle, Percutaneous Approach (ICD-10-PCS; 2025-07-05)
DX: I11.0 Hypertensive heart disease with heart failure (principal); I50.23 Acute on chronic systolic (congestive) heart failure; I21.A1 Myocardial infarction type 2; I47.20 Ventricular tachycardia, unspecified; F14.10 Cocaine abuse, uncomplicated; I42.8 Other cardiomyopathies; M19.90 Unspecified osteoarthritis, unspecified site; Z91.148 Patient's other noncompliance with medication regimen for other reason; Z72.0 Tobacco use; E87.6 Hypokalemia; Z23 Encounter for immunization
CPT/HCPCS: 36415; 36416; 71045; 80048; 80053; 80306; 82805; 83735; 83880; 84484; 85025; 90653; 93005; 93306; 93798; 94640; 96374; 96375; J1644; J1940; J2919; J3475